=== PATIENT | female | born 1975 | race African-American/Black ===

== ENCOUNTER 2017-06-06 15:40 | Emergency (ER) | payer MEDICAID, OTHER ==
[~2017-06-06] VITALS: Ht 175.3 cm; Wt 91.0 kg
[~2017-06-06 15:40] MED LIST: PREN1TAB49 PO
[2017-06-06 16:20] VITALS: BP 160/88
[2017-06-06 17:20] LABS: *BARBITURATES SCREEN URINE NEGATIVE (NEGATIVE); *BENZODIAZEPINES SCREEN URINE NEGATIVE (NEGATIVE); METHADONE URINE SCREEN NEGATIVE (NEGATIVE); OPIATES URINE SCREEN NEGATIVE (NEGATIVE); PHENCYCLIDINE URINE SCREEN NEGATIVE (NEGATIVE)
[2017-06-06 17:21] LABS: *AMPHETAMINES SCREEN URINE PRESUMTIVE POSITIVE (NEGATIVE); *COCAINE SCREEN URINE PRESUMTIVE POSITIVE (NEGATIVE); CANNABINOID URINE SCREEN PRESUMTIVE POSITIVE (NEGATIVE)
== END 2017-06-06 17:28 | disposition home or self-care (01) ==
LOC: ER 15:46
DX: T40.5X1A Poisoning by cocaine, accidental (unintentional), initial encounter (principal); T43.621A Poisoning by amphetamines, accidental (unintentional), initial encounter; T40.7X1A Poisoning by cannabis (derivatives), accidental (unintentional), initial encounter; F12.929 Cannabis use, unspecified with intoxication, unspecified; F14.129 Cocaine abuse with intoxication, unspecified; J45.909 Unspecified asthma, uncomplicated; Y92.89 Other specified places as the place of occurrence of the external cause; Z90.49 Acquired absence of other specified parts of digestive tract; Z88.8 Allergy status to other drugs, medicaments and biological substances; Z87.440 Personal history of urinary (tract) infections
CPT/HCPCS: 80305; 93005; 99285

== ENCOUNTER 2017-06-15 19:49 | Emergency (ER) | payer MEDICAID, OTHER ==
[~2017-06-15] VITALS: Ht 167.6 cm; Wt 100.0 kg
[2017-06-15] MEDS ORDERED: IBUPROFEN 600MG TABLET PO ONE (21:30)
[2017-06-15] MEDS ORDERED: ONDANSETRON 4MG ODT PO ONE (21:30)
[2017-06-15 22:40] VITALS: BP 113/62
== END 2017-06-15 22:51 | disposition home or self-care (01) ==
LOC: ER 19:49
DX: J06.9 Acute upper respiratory infection, unspecified (principal); F17.200 Nicotine dependence, unspecified, uncomplicated; J45.909 Unspecified asthma, uncomplicated; R19.7 Diarrhea, unspecified; Z20.828 Contact with and (suspected) exposure to other viral communicable diseases; Z90.49 Acquired absence of other specified parts of digestive tract
CPT/HCPCS: 71045; 81025; 87804; 99285; Q0162

== ENCOUNTER 2023-04-03 17:04 | Emergency (ER) | payer OTHER ==
[~2023-04-03] VITALS: Ht 177.8 cm; Wt 107.0 kg
[2023-04-03 17:42] VITALS: TEMP 97.9; O2SAT 99
[2023-04-03] MEDS ORDERED: IBUPROFEN 600MG TABLET PO STA (20:02)
[2023-04-03 20:19] VITALS: BP 140/64; PULSE 62; RESP 18
[2023-04-03] MEDS ORDERED: ACET-2708 MT (20:41)
== END 2023-04-03 21:58 | disposition home or self-care (01) ==
LOC: ER 17:04
DX: M25.562 Pain in left knee (principal); J45.909 Unspecified asthma, uncomplicated; Z90.49 Acquired absence of other specified parts of digestive tract
CPT/HCPCS: 73562; 99283; Z7610; L1830